=== PATIENT | male | born 1945 | race Caucasian/White ===

== ENCOUNTER 2017-04-17 04:50 | Observation (INO) | payer MEDICARE, OTHER ==
[2017-04-17] MEDS ORDERED: Sodium Chloride 0.9% 1000 ML 1,000 ML IV STA ×2 (05:05→05:20)
[2017-04-17] MEDS ORDERED: ROCEPHIN 1 Gm-D5w 50 ml Bag** 1 G/50 ML IVPB IV STA (05:08)
[2017-04-17] MEDS ORDERED: TYLENOL 325 MG PO ONE (05:09)
[2017-04-17] MEDS ORDERED: Zofran 4 MG/2 ML VIAL IV ONE (05:15)
--- NOTE | 2017-04-17 05:15 | ERPHSYRPT ---
- History of Present Illness Time Seen by Provider: 04/17/17 05:02 Source: patient Exam Limitations: no limitations Patient Subjective Stated Complaint: pt co left shoulder ,and arm pain co neck pain -he is shivering and coughing co urinary frequency -coughted and vomitied in parking lot of er -co weaknes and aching at bedtime Triage Nursing Assessment: pt is awake and alert and able to answer questions - moaning with each resp Physician History: FOR THE PAST 2 DAYS PT HAS HAD LEFT SHOULDER AND ARM PAIN; THIS AM PT FEELS ACHY AND GENERALLY WEAK WITH INCREASED URINARY FREQUENCY, CHILLS, COUGH AND VOMITING X1. Allergies/Adverse Reactions: codeine Allergy (Verified 04/17/17 05:13) Penicillins Allergy (Verified 04/17/17 05:13) Home Medications: Clopidogrel Bisulfate 75 mg [PLAVIX 75 MG Tablet] 1 tab PO DAILY 04/17/17 [History] Hx Tetanus, Diphtheria Vaccination/Date Given: No Hx Influenza Vaccination/Date Given: No Hx Pneumococcal Vaccination/Date Given: No - Review of Systems Constitutional: Chills, Weakness (GENERALIZED) Respiratory: Cough Abdominal/Gastrointestinal: Vomiting Genitourinary Symptoms: Frequency Musculoskeletal: Myalgias, Other (LEFT SHOULDER/ARM PAIN) All Other Systems: Reviewed and Negative - Social History Smoking Status: Former smoker Exposure to second hand smoke: Yes Patient Lives Alone: No - Nursing Vital Signs Nursing Vital Signs: Initial Vital Signs Temperature 101.1 F Temperature Source Oral Pulse Rate 90 Respiratory Rate 23 Blood Pressure [] 178/95 Pain Intensity 3 - Physical Exam General Appearance: alert Eye Exam: PERRL/EOMI Ears, Nose, Throat Exam: dry mucous membranes, pharyngeal erythema Neck Exam: normal inspection Respiratory Exam: wheezing (MILD WHEEZING OVER POSTERIOR BASES) Cardiovascular Exam: normal heart sounds Gastrointestinal/Abdomen Exam: soft, normal bowel sounds Back Exam: normal range of motion Extremity Exam: normal inspection, No pedal edema Neurologic Exam: alert, cooperative Skin Exam: warm, dry SpO2 Interpretation: normal SpO2: 94 Oxygen Delivery: Room Air - Course Nursing assessment & vital signs reviewed: Yes EKG Interpreted by Me: RATE (96), Sinus Rhythm, NORMAL AXIS, NORMAL INTERVALS - Radiology Exams Chest X-ray Interpretation: Interpreted by me (RLL INFILTRATE) Ordered Tests: Active Orders 24 hr Category Date Time Status Binding Machine Operator STAT Care 04/17/17 05:14 Active EKG-ER Only STAT Care 04/17/17 05:05 Active IV Insertion STAT Care 04/17/17 05:05 Active Pulse Oximetry (ED) STAT Care 04/17/17 05:05 Active CHEST 1 VIEW (PORTABLE) Stat Exams 04/17/17 05:06 Taken AMYLASE Stat Lab 04/17/17 05:10 Completed BLOOD CULTURE Stat Lab 04/17/17 05:00 Received CBC W DIFF Stat Lab 04/17/17 05:10 Completed CMP Stat Lab 04/17/17 05:10 Completed CULTURE, THROAT Stat Lab 04/17/17 05:10 Received CULTURE,URINE Stat Lab 04/17/17 05:36 Ordered LIPASE Stat Lab 04/17/17 05:10 Completed Lactic Acid Urgent Lab 04/17/17 05:05 Completed MAGNESIUM Stat Lab 04/17/17 05:10 Completed [place] Screen Stat Lab 04/17/17 05:10 Completed PROTIME WITH INR Stat Lab 04/17/17 05:10 Completed PTT Stat Lab 04/17/17 05:10 Completed STREP SCREEN-BETA A Stat Lab 04/17/17 05:10 Completed Sputum Culture [CULTURE,SPUTUM] Stat Lab 04/17/17 06:01 Ordered TROPONIN Q3H Lab 04/17/17 05:10 Completed TROPONIN Q3H Lab 04/17/17 08:15 Ordered TROPONIN Q3H Lab 04/17/17 11:15 Ordered TROPONIN Q3H Lab 04/17/17 14:15 Ordered TROPONIN Q3H Lab 04/17/17 17:15 Ordered UA W/RFX UR CULTURE Stat Lab 04/17/17 05:06 Ordered Respiratory Nebulizer STAT RT 04/17/17 06:02 Completed Transfer Order Routine Transfer 04/17/17 06:17 Ordered Medication Summary Generic Name Dose Route Start Last Admin Trade Name Freq PRN Reason Stop Dose Admin Azithromycin / Sodium Chloride 250 mls @ 125 mls/hr 04/17/17 05:56 IV 04/17/17 07:55 STAT ONE Magnesium Sulfate/Dextrose 100 mls @ 200 mls/hr 04/17/17 06:06 04/17/17 06:21 Magnesium 1 Gm / 100 Ml D5w IV 04/17/17 06:35 200 mls/hr STAT ONE Administration Discontinued Medications Generic Name Dose Route Start Last Admin Trade Name Freq PRN Reason Stop Dose Admin Acetaminophen 650 mg 06/25/17 05:09 04/17/17 05:24 Tylenol 325 Mg PO 04/17/17 05:10 650 mg STAT ONE Administration Acetaminophen Confirm 04/17/17 05:21 Tylenol 325 Mg Administered 04/17/17 05:22 Dose 650 mg .ROUTE .STK-MED ONE Ceftriaxone Sodium/Dextrose 1 g in 50 mls @ 100 mls/hr 04/17/17 05:08 05:25 Rocephin 1 Gm-D5w 50 Ml Bag IV 04/17/17 05:37 100 mls/hr STAT STA Administration Sodium Chloride 1,000 mls @ 999 mls/hr 04/17/17 05:05 04/17/17 05:24 Sodium Chloride 0.9% 1000 Ml IV 04/17/17 06:05 999 mls/hr .Q1H1M STA Administration Sodium Chloride Confirm 04/17/17 05:16 Sodium Chloride 0.9% 1000 Ml Administered 04/17/17 05:17 Dose 1,000 mls @ ud .ROUTE .STK-MED ONE Ceftriaxone Sodium/Dextrose Confirm 04/17/17 05:16 Rocephin 1 Gm-D5w 50 Ml Bag Administered 04/17/17 05:17 Dose 1 g in 50 mls @ ud IV .STK-MED ONE Sodium Chloride 1,000 mls @ 999 mls/hr 04/17/17 05:20 04/17/17 06:15 Sodium Chloride 0.9% 1000 Ml IV 04/17/17 06:20 999 mls/hr .Q1H1M STA Administration Sodium Chloride Confirm 04/17/17 06:02 Sodium Chloride 0.9% 1000 Ml Administered 04/17/17 06:03 Dose 1,000 mls @ ud .ROUTE .STK-MED ONE Magnesium Sulfate/Dextrose Confirm 04/17/17 06:15 Magnesium 1 Gm / 100 Ml D5w Administered 04/17/17 06:16 Dose 100 mls @ ud IV .STK-MED ONE Ketorolac Tromethamine 30 mg 04/17/17 05:18 04/17/17 05:28 Toradol 30 Mg Injection IV 04/17/17 05:19 30 mg STAT ONE Administration Ketorolac Tromethamine Confirm 04/17/17 05:27 Toradol 30 Mg Injection Administered 04/17/17 05:28 Dose 30 mg .ROUTE .STK-MED ONE Levalbuterol HCl 1.25 mg 04/17/17 05:51 04/17/17 06:01 Xopenex 1.25 Mg/0.5 Ml Ud Nebule IH 04/17/17 05:52 1.25 mg STAT ONE Administration Levalbuterol HCl Confirm 04/17/17 05:57 Xopenex 1.25 Mg/0.5 Ml Ud Nebule Administered 04/17/17 05:58 Dose 1.25 mg IH .STK-MED ONE Ondansetron HCl 4 mg 04/17/17 05:15 04/17/17 05:25 Zofran 4 Mg/2 Ml Vial IV 04/17/17 05:16 4 mg STAT ONE Administration Ondansetron HCl Confirm 04/17/17 05:16 Zofran 4 Mg/2 Ml Vial Administered 04/17/17 05:17 Dose 4 mg .ROUTE .STK-MED ONE Sodium Chloride Confirm 04/17/17 05:57 Sodium Chloride 3 Ml Ud Nebules Administered 04/17/17 05:58 Dose 3 ml IH .STK-MED ONE Lab/Rad Data: Laboratory Result Diagrams 04/17/17 05:10 04/17/17 05:10 Laboratory Results 04/17/17 04/17/17 04/17/17 Range/Units 05:10 05:10 05:10 WBC (4.0-10.5) K/mm3 RBC (4.1-5.6) M/mm3 Hgb (12.5-18.0) gm/dl Hct (42-50) % MCV (78-100) fl MCH (26-32) pg MCHC (32-36) g/dl RDW (11.5-14.0) % Plt Count (150-450) K/mm3 MPV (6-9.5) fl Gran % (36.0-66.0) % Lymphocytes % (24.0-44.0) % Monocytes % (0.0-12.0) % Eosinophils % (0.00-5.0) % Basophils % (0.0-0.4) % Basophils # (0-0.4) INR (0.8-3.0) APTT (24.1-36.1) SECONDS Sodium (136-145) mEq/L Potassium (3.5-5.1) mEq/L Chloride (98-107) mEq/L Carbon Dioxide (21-32) mEq/L Anion Gap (5-15) MEQ/L BUN (9-20) mg/dL Creatinine (0.55-1.30) mg/dl Estimated GFR ML/MIN Glucose (70-110) MG/DL Lactic Acid (0.4-2.0) Calcium (8.5-10.1) mg/dL Magnesium (1.8-2.4) mg/dL Total Bilirubin (0.2-1.0) mg/dL AST (15-37) U/L ALT (12-78) U/L Alkaline Phosphatase (46-116) U/L Troponin I < 0.017 (0.000-0.056) ng/ml Serum Total Protein (6.4-8.2) gm/dL Albumin (3.4-5.0) g/dL Amylase (25-115) U/L Lipase (73-393) U/L Monoscreen NEGATIVE (Negative) Streptococcus Screen NEGATIVE (Negative) 04/17/17 04/17/17 04/17/17 Range/Units 05:10 05:10 05:10 WBC 12.7 H (4.0-10.5) K/mm3 RBC 4.60 (4.1-5.6) M/mm3 Hgb 14.6 (12.5-18.0) gm/dl Hct 43.9 (42-50) % MCV 95.4 (78-100) fl MCH 31.7 (26-32) pg MCHC 33.3 (32-36) g/dl RDW 16.2 H (11.5-14.0) % Plt Count 138 L (150-450) K/mm3 MPV 12.0 H (6-9.5) fl Gran % 83.8 H (36.0-66.0) % Lymphocytes % 9.8 L (24.0-44.0) % Monocytes % 5.7 (0.0-12.0) % Eosinophils % 0.5 (0.00-5.0) % Basophils % 0.2 (0.0-0.4) % Basophils # 0.03 (0-0.4) INR 1.01 (0.8-3.0) APTT 30.9 (24.1-36.1) SECONDS Sodium 142 (136-145) mEq/L Potassium 4.0 (3.5-5.1) mEq/L Chloride 106 (98-107) mEq/L Carbon Dioxide 25.8 (21-32) mEq/L Anion Gap 14.4 (5-15) MEQ/L BUN 18 (9-20) mg/dL Creatinine 1.32 H (0.55-1.30) mg/dl Estimated GFR 57 ML/MIN Glucose 171 H (70-110) MG/DL Lactic Acid (0.4-2.0) Calcium 8.9 (8.5-10.1) mg/dL Magnesium 1.4 L (1.8-2.4) mg/dL Total Bilirubin 0.50 (0.2-1.0) mg/dL AST 19 (15-37) U/L ALT 17 (12-78) U/L Alkaline Phosphatase 80 (46-116) U/L Troponin I (0.000-0.056) ng/ml Serum Total Protein 7.6 (6.4-8.2) gm/dL Albumin 3.8 (3.4-5.0) g/dL Amylase 55 (25-115) U/L Lipase 110 (73-393) U/L Monoscreen (Negative) Streptococcus Screen (Negative) 04/17/17 Range/Units 05:05 WBC (4.0-10.5) K/mm3 RBC (4.1-5.6) M/mm3 Hgb (12.5-18.0) gm/dl Hct (42-50) % MCV (78-100) fl MCH (26-32) pg MCHC (32-36) g/dl RDW (11.5-14.0) % Plt Count (150-450) K/mm3 MPV (6-9.5) fl Gran % (36.0-66.0) % Lymphocytes % (24.0-44.0) % Monocytes % (0.0-12.0) % Eosinophils % (0.00-5.0) % Basophils % (0.0-0.4) % Basophils # (0-0.4) INR (0.8-3.0) APTT (24.1-36.1) SECONDS Sodium (136-145) mEq/L Potassium (3.5-5.1) mEq/L Chloride (98-107) mEq/L Carbon Dioxide (21-32) mEq/L Anion Gap (5-15) MEQ/L BUN (9-20) mg/dL Creatinine (0.55-1.30) mg/dl Estimated GFR ML/MIN Glucose (70-110) MG/DL Lactic Acid 1.9 (0.4-2.0) Calcium (8.5-10.1) mg/dL Magnesium (1.8-2.4) mg/dL Total Bilirubin (0.2-1.0) mg/dL AST (15-37) U/L ALT (12-78) U/L Alkaline Phosphatase (46-116) U/L Troponin I (0.000-0.056) ng/ml Serum Total Protein (6.4-8.2) gm/dL Albumin (3.4-5.0) g/dL Amylase (25-115) U/L Lipase (73-393) U/L Monoscreen (Negative) Streptococcus Screen (Negative) - Progress Discussed with DrChetan: Maximilian Morrison (OBS - [id number]) - Departure Time of Disposition: 06:29 Departure Disposition: Observation Clinical Impression: PNEUMONIA, ARTHRITIS, COPD Condition: Stable Critical Care Time: No Referrals: MICHELLE SCHAFFER [NON-STAFF PHY W/O PRIVILEGES] -
[2017-04-17] MEDS ORDERED: Zofran 4 MG/2 ML VIAL ONE (05:16)
[2017-04-17] MEDS ORDERED: Sodium Chloride 0.9% 1000 ML 1,000 ML ONE ×2 (05:16→06:02)
[2017-04-17] MEDS ORDERED: ROCEPHIN 1 Gm-D5w 50 ml Bag** 1 G/50 ML IVPB IV ONE (05:16)
[2017-04-17] MEDS ORDERED: TORAdol 30 mg Injection IV ONE (05:18)
[2017-04-17] MEDS ORDERED: TYLENOL 325 MG ONE (05:21)
[2017-04-17 05:25] LABS: BASOPHIL % 0.2 % (0.0-0.4); Eosinophil % 0.5 % (0.00-5.0); Granulocytes % 83.8 % (36.0-66.0); Lymphocytes % 9.8 % (24.0-44.0); Mean Cell Volume 95.4 fl (78-100); Mean Corpuscular Hemoglobin 31.7 pg (26-32); Monocytes % 5.7 % (0.0-12.0); Platelet Count 138 K/mm3 (150-450); Red Cell Distribution Width 16.2 % (11.5-14.0); White Blood Count 12.7 K/mm3 (4.0-10.5)
[2017-04-17] MEDS ORDERED: TORAdol 30 mg Injection ONE (05:27)
[2017-04-17 05:38] LABS: INR 1.01 (0.8-3.0); PROTIME 11.4 SECONDS (8.83-12.87)
[2017-04-17 05:41] LABS: PTT 30.9 SECONDS (24.1-36.1)
[2017-04-17 05:46] LABS: ALBUMIN 3.8 g/dL (3.4-5.0); ANION GAP 14.4 MEQ/L (5-15); BILIRUBIN,TOTAL 0.5 mg/dL (0.2-1.0); Carbon Dioxide 25.8 mEq/L (21-32); MAGNESIUM 1.4 mg/dL (1.8-2.4); Total Protein 7.6 gm/dL (6.4-8.2)
[2017-04-17] MEDS ORDERED: Xopenex 1.25 MG/0.5 ML UD NEBULE IH ONE ×2 (05:51→05:57)
[2017-04-17] MEDS ORDERED: ZITHROMAX IV 500 MG*** 0 MG in Sodium Chloride 0.9% 250 ML 250 ML IV ONE (05:56)
[2017-04-17] MEDS ORDERED: Sodium Chloride 3 ML UD NEBULES IH ONE (05:57)
[2017-04-17] MEDS ORDERED: Magnesium 1 Gm / 100 Ml D5W*** 100 ML IV ONE ×2 (06:06→06:15)
[2017-04-17] MEDS ORDERED: Zithromax 500 MG/ 250 ML NaCl Premix 500 MG/250 ML IVPB IV SCH (07:30)
[2017-04-17] MEDS ORDERED: Phenergan 25 MG INJ IV PRN (07:35)
[2017-04-17] MEDS ORDERED: PROVENTIL 2.5 MG/3 ML NEB IH PRN (07:35)
--- NOTE | 2017-04-17 07:44 | XRAY ---
Indication: Left arm pain. Emesis. Comparison: February 09, 2011. Portable chest again demonstrates right mid to lower lung infiltrate versus atelectasis, left base fibrosis/scarring, and left lung calcified pleural plaquing. Heart is not enlarged. Bony thorax intact.
[2017-04-17 08:12] LABS: ADD URINE CULTURE? NO (NO); Bilirubin NEGATIVE (NEGATIVE); Blood NEGATIVE Ery/ul (0-5); COMPLETE URINE MICROSCOPIC? NO; Collection Type CLEAN CATCH; Glucose NEGATIVE (NEGATIVE); Leukocyte Esterase NEGATIVE (NEGATIVE)
[2017-04-17] MEDS: PATIENT OWN MEDICATION IH SCH (08:15)
[2017-04-17] MEDS ORDERED: Zithromax 500 MG/ 250 ML NaCl Premix 500 MG/250 ML IVPB IV ONE (08:17)
[2017-04-17] MEDS: Sodium Chloride 0.9% 1000 ML 1,000 ML IV SCH ×2 (08:22→19:50)
[2017-04-17] MEDS ORDERED: NON-FORMULARY ITEM (Dexlansoprazole [Dexilant] 60 MG) PO SCH (10:00)
[2017-04-17] MEDS ORDERED: [UNRECOGNIZED DRUG - OTHER] SQ SCH (10:00)
[2017-04-17] MEDS ORDERED: COMBIVENT RESPIMAT COMMON CANISTER IH SCH (10:00)
[2017-04-17] MEDS: DUONEB 0.5-3 MG/3 ml Neb IH SCH ×5 (10:28→23:02)
[2017-04-17] MEDS: MAG-OX 400 PO SCH ×2 (11:00→22:55)
[2017-04-17] MEDS: FOLATE 1 MG PO SCH (11:00)
[2017-04-17] MEDS: Protonix 40MG Tablet PO SCH (11:00)
[2017-04-17] MEDS: PLAVIX 75 MG Tablet PO SCH (11:00)
[2017-04-17] MEDS: TYLENOL 325 MG PO PRN (11:04)
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
[2017-04-17] MEDS: NORCO 5/325 MG PO PRN ×2 (13:00→18:54)
[2017-04-17] MEDS: Zestril 5 MG PO SCH (19:51)
[2017-04-17] MEDS ORDERED: NON-FORMULARY ITEM (Simvastatin 40 Mg [Zocor 40 Mg] 40 MG) PO SCH (22:00)
[2017-04-17] MEDS: Singulair 10 MG PO SCH (22:54)
[2017-04-17] MEDS: ZOCOR 20MG PO SCH (22:55)
[2017-04-17] MEDS: Flomax 0.4 MG PO SCH (22:55)
[2017-04-18] MEDS: NORCO 5/325 MG PO PRN ×2 (01:48→08:15)
[2017-04-18] MEDS: TYLENOL 325 MG PO PRN ×2 (03:28→09:16)
[2017-04-18] MEDS: DUONEB 0.5-3 MG/3 ml Neb IH SCH ×6 (03:38→23:06)
[2017-04-18 05:51] LABS: Mean Cell Volume 98.9 fl (78-100); Mean Corpuscular Hemoglobin 31.8 pg (26-32); Mean Platelet Volume 11.1 fl (6-9.5); Platelet Count 107 K/mm3 (150-450); Red Blood Count 3.55 M/mm3 (4.1-5.6); Red Cell Distribution Width 16.4 % (11.5-14.0); White Blood Count 8.4 K/mm3 (4.0-10.5)
[2017-04-18 06:06] LABS: ALBUMIN 2.8 g/dL (3.4-5.0); ALKALINE PHOSPHATASE 59 U/L (46-116); ANION GAP 12.1 MEQ/L (5-15); CHLORIDE 110 mEq/L (98-107); Carbon Dioxide 24.9 mEq/L (21-32); Glucose 135 MG/DL (70-110); MAGNESIUM 1.7 mg/dL (1.8-2.4); Potassium 3.9 mEq/L (3.5-5.1); SGOT/AST 17 U/L (15-37); SGPT/ALT 13 U/L (12-78); SODIUM 143 mEq/L (136-145)
[2017-04-18] MEDS: Sodium Chloride 0.9% 1000 ML 1,000 ML IV SCH ×2 (06:08→19:45)
[2017-04-18 06:21] LABS: BLOOD UREA NITROGEN 13 mg/dL (9-20)
[2017-04-18 07:33] LABS: BAND 1 % (0.0-2.0); Total Cells Counted 100
[2017-04-18 07:34] LABS: Platelet Estimate NORMAL (NORMAL)
[2017-04-18] MEDS: Protonix 40MG Tablet PO SCH (08:15)
[2017-04-18] MEDS: MAG-OX 400 PO SCH ×2 (08:15→21:19)
[2017-04-18] MEDS: FOLATE 1 MG PO SCH (08:15)
[2017-04-18] MEDS: PLAVIX 75 MG Tablet PO SCH (08:15)
[2017-04-18] MEDS: PATIENT OWN MEDICATION IH SCH (08:19)
[2017-04-18] MEDS: Zestril 5 MG PO SCH ×2 (09:14→09:19)
[2017-04-18] MEDS: ROCEPHIN 1 Gm-D5w 50 ml Bag** 1 G/50 ML IVPB IV SCH (09:14)
[2017-04-18] MEDS: Zithromax 500 MG/ 250 ML NaCl Premix 500 MG/250 ML IVPB IV SCH (09:19)
[2017-04-18] MEDS ORDERED: PREVNAR 13 SYRINGE IM ONE (10:00)
--- NOTE | 2017-04-18 12:55 | PCM.NOTE ---
Date and Time: 04/18/17 1252 Subjective Assessment: c/o pain in left shoulder, left side of neck., fever - Review of Systems Constitutional: No Fever, No Chills Eyes: No Symptoms Ears, Nose, & Throat: No Symptoms Respiratory: No Cough, No Short Of Breath Cardiac: No Chest Pain, No Edema, No Syncope Abdominal/Gastrointestinal: No Abdominal Pain, No Nausea, No Vomiting, No Diarrhea Genitourinary Symptoms: No Dysuria Musculoskeletal: Arthralgias (left shoulder and neck area), No Back Pain, No Neck Pain Skin: No Rash Neurological: No Dizziness, No Focal Weakness, No Sensory Changes Psychological: No Symptoms Endocrine: No Symptoms Hematologic/Lymphatic: No Symptoms Immunological/Allergic: No Symptoms Objective Exam General Appearance: no apparent distress, alert Neurologic Exam: alert, oriented x 3, cooperative, normal mood/affect, nml cerebellar function, sensation nml, No motor deficits Skin Exam: normal color, warm, dry Eye Exam: PERRL, EOMI, eyes nml inspection Ears, Nose, Throat Exam: normal ENT inspection, pharynx normal, moist mucous membranes Neck Exam: normal inspection, non-tender, supple, full range of motion Respiratory Exam: diminished breath sounds, crackles/rales, rhonchi, No respiratory distress Cardiovascular Exam: regular rate/rhythm, normal heart sounds Gastrointestinal/Abdomen Exam: soft, No tenderness, No mass Extremity Exam: normal inspection, normal range of motion Back Exam: normal inspection, normal range of motion, No CVA tenderness, No vertebral tenderness Male Genitalia Exam: deferred Rectal Exam: deferred OBJECTIVE DATA Vital Signs: Vital Signs - 24 hr Temp Pulse Resp BP Pulse Ox 04/18/17 12:00 18 04/18/17 10:37 72 18 97 04/18/17 08:00 22 04/18/17 07:09 98 F 66 22 139/65 95 04/18/17 07:00 68 20 04/18/17 04:00 97.5 F 67 21 118/85 96 04/18/17 03:00 66 20 95 04/17/17 23:52 97.7 F 60 18 149/70 95 04/17/17 23:00 91 H 18 95 04/17/17 20:00 98.4 F 73 22 176/82 89 L 04/17/17 19:21 85 18 92 L 04/17/17 16:00 20 06/25/17 14:56 98.1 F 04/17/17 14:53 64 20 93 L Oxygen-Last 24 hours O2 Percentage 2 Liters = 28% O2 Percentage 2 Liters = 28% O2 Percentage 2 Liters = 28% Pain Assessment - Last Documented Pain Intensity 3 Pain Scale Used 0-10 Pain Scale Intake and Output: Intake & Output 04/16/17 04/17/17 04/18/17 04/19/17 11:59 11:59 11:59 11:59 Intake Total 240 2041 Output Total 400 300 Balance -160 1741 Weight 94.801 kg 95.254 kg Lab Results: Accuchecks Date 04/18/17 Date 04/18/17 Date 04/17/17 Time 11:35 Time 07:30 Time 16:30 Accucheck Value: 145 Accucheck Value: 129 Accucheck Value: 131 Accucheck Value: 122 Lab Results-Last 24 Hours 04/17/17 04/17/17 04/18/17 Range/Units 14:30 17:20 05:25 WBC 8.4 (4.0-10.5) K/mm3 RBC 3.55 L (4.1-5.6) M/mm3 Hgb 11.3 L (12.5-18.0) gm/dl Hct 35.1 L (42-50) % MCV 98.9 (78-100) fl MCH 31.8 (26-32) pg MCHC 32.2 (32-36) g/dl RDW 16.4 H (11.5-14.0) % Plt Count 107 L (150-450) K/mm3 MPV 11.1 H (6-9.5) fl Segmented Neutrophils 78 H (36.-66.) % Band Neutrophils 1 (0.0-2.0) % Lymphocytes (Manual) 18 L (24-44) % Monocytes (Manual) 3 (0.0-12.0) % Differential Comment NORMAL Platelet Estimate NORMAL (NORMAL) Sodium (136-145) mEq/L Potassium (3.5-5.1) mEq/L Chloride (98-107) mEq/L Carbon Dioxide (21-32) mEq/L Anion Gap (5-15) MEQ/L BUN (9-20) mg/dL Creatinine (0.55-1.30) mg/dl Estimated GFR ML/MIN Glucose (70-110) MG/DL Calcium (8.5-10.1) mg/dL Magnesium (1.8-2.4) mg/dL Total Bilirubin (0.2-1.0) mg/dL AST (15-37) U/L ALT (12-78) U/L Alkaline Phosphatase (46-116) U/L Troponin I 0.035 0.037 (0.000-0.056) ng/ml Serum Total Protein (6.4-8.2) gm/dL Albumin (3.4-5.0) g/dL 04/18/17 Range/Units 05:25 WBC (4.0-10.5) K/mm3 RBC (4.1-5.6) M/mm3 Hgb (12.5-18.0) gm/dl Hct (42-50) % MCV (78-100) fl MCH (26-32) pg MCHC (32-36) g/dl RDW (11.5-14.0) % Plt Count (150-450) K/mm3 MPV (6-9.5) fl Segmented Neutrophils (36.-66.) % Band Neutrophils (0.0-2.0) % Lymphocytes (Manual) (24-44) % Monocytes (Manual) (0.0-12.0) % Differential Comment Platelet Estimate (NORMAL) Sodium 143 (136-145) mEq/L Potassium 3.9 (3.5-5.1) mEq/L Chloride 110 H (98-107) mEq/L Carbon Dioxide 24.9 (21-32) mEq/L Anion Gap 12.1 (5-15) MEQ/L BUN 13 (9-20) mg/dL Creatinine 1.15 (0.55-1.30) mg/dl Estimated GFR > 60 ML/MIN Glucose 135 H (70-110) MG/DL Calcium 7.9 L (8.5-10.1) mg/dL Magnesium 1.7 L (1.8-2.4) mg/dL Total Bilirubin 0.60 (0.2-1.0) mg/dL AST 17 (15-37) U/L ALT 13 (12-78) U/L Alkaline Phosphatase 59 (46-116) U/L Troponin I (0.000-0.056) ng/ml Serum Total Protein 6.0 L (6.4-8.2) gm/dL Albumin 2.8 L (3.4-5.0) g/dL Assessment/Plan (1) Pneumonia involving right lung Current Visit: Yes Status: Acute Qualifiers: Pneumonia type: due to unspecified organism Lung location: lower lobe of lung Qualified Code(s): J18.1 - Lobar pneumonia, unspecified organism Assessment & Plan: Last Vital Signs Temp 98 F 04/18/17 07:09 Pulse 72 04/18/17 10:37 Resp 18 04/18/17 12:00 BP 139/65 04/18/17 07:09 Pulse Ox 97 04/18/17 10:37 Allergies codeine Allergy (Verified 04/17/17 05:13) Penicillins Allergy (Verified 04/17/17 05:13) Active Medications Acetaminophen (Tylenol 325 Mg) 650 mg PO Q4H PRN PRN PRN Reason: PAIN AND/OR FEVER Stop: 05/17/17 07:34 Last Admin: 04/18/17 09:16 Dose: 650 mg Hydrocodone Bitart/Acetaminophen ([place] 7.5/325 Mg Tab) 1 tab PO Q4H PRN PRN PRN Reason: PAIN Stop: 04/23/17 12:52 Albuterol Sulfate (Proventil 2.5 Mg/3 Ml Neb) 2.5 mg IH Q2H PRN PRN PRN Reason: SHORTNESS OF BREATH/WHEEZING Stop: 05/17/17 07:34 Albuterol/Ipratropium (Duoneb 0.5-3 Mg/3 Ml Neb) 3 ml IH Q4HRT RODGER Stop: 05/17/17 07:34 Last Admin: 04/18/17 10:37 Dose: 3 ml Clopidogrel Bisulfate (Plavix 75 Mg Tablet) 75 mg PO DAILY [facility] Stop: 05/17/17 09:59 Last Admin: 04/18/17 08:15 Dose: 75 mg Folic Acid (Folate 1 Mg) 1 mg PO DAILY [facility] Stop: 05/17/17 09:59 Last Admin: 04/18/17 08:15 Dose: 1 mg Guaifenesin/Dextromethorphan (Robitussin-Dm Syrup) 10 ml PO Q4H PRN PRN PRN Reason: COUGH Stop: 05/17/17 07:34 Azithromycin (Zithromax 500 Mg/ 250 Ml Nacl Premix) 500 mg in 250 mls @ 250 mls /hr IV Q24H10 RODGER Stop: 05/18/17 09:59 Last Admin: 04/18/17 09:19 Dose: 250 mls/hr Ceftriaxone Sodium/Dextrose (Rocephin 1 Gm-D5w 50 Ml Bag) 1 g in 50 mls @ 100 mls/hr IV Q24H10 RODGER Stop: 05/18/17 09:59 Last Admin: 04/18/17 09:14 Dose: 100 mls/hr Sodium Chloride (Sodium Chloride 0.9% 1000 Ml) 1,000 mls @ 100 mls/hr IV .Q10H RODGER Stop: 05/17/17 07:34 Last Admin: 04/18/17 06:08 Dose: 100 mls/hr Lisinopril (Zestril 5 Mg) 5 mg PO 2000 [facility] Stop: 05/17/17 19:59 Last Admin: 04/18/17 09:14 Dose: 5 mg Lisinopril (Zestril 5 Mg) 5 mg PO DAILY RODGER Stop: 05/18/17 09:59 Last Admin: 04/18/17 09:19 Dose: 5 mg Magnesium Oxide (Mag-Ox 400) 400 mg PO BID RODGER Stop: 05/17/17 09:59 Last Admin: 04/18/17 08:15 Dose: 400 mg Montelukast Sodium (Singulair 10 Mg) 10 mg PO HS RODGER Stop: 05/17/17 21:59 Last Admin: 04/17/17 22:54 Dose: 10 mg Pantoprazole Sodium (Protonix 40mg Tablet) 40 mg PO DAILY RODGER Stop: 05/17/17 09:59 Last Admin: 04/18/17 08:15 Dose: 40 mg Anoro Ellipta (Inhaler) 1 each IH DAILY RODGER Stop: 05/17/17 09:59 Last Admin: 04/18/17 08:19 Dose: 1 each Patient Own Med ( (Humira)) 0 each SQ Q14D RODGER Stop: 05/24/17 09:59 Promethazine HCl (Phenergan 25 Mg Inj) 12.5 mg IV Q2H PRN PRN PRN Reason: NAUSEA/VOMITING Stop: 05/17/17 07:34 Simvastatin (Zocor 20mg) 40 mg PO HS RODGER Stop: 05/17/17 21:59 Last Admin: 04/17/17 22:55 Dose: 40 mg Tamsulosin HCl (Flomax 0.4 Mg) 0.4 mg PO HS RODGER Stop: 05/17/17 21:59 Last Admin: 04/17/17 22:55 Dose: 0.4 mg Intake & Output 04/18/17 04/19/17 11:59 11:59 Intake Total 2041 Output Total 300 Balance 1741 Weight 95.254 kg Orders 04/17/17 17:59 ACCUCHECK [Accucheck] ACHS 04/17/17 20:00 Lisinopril 5 mg [Zestril 5 MG] 5 mg PO 2000 04/17/17 22:00 Montelukast Sodium 10 mg [Singulair 10 MG] 10 mg PO HS Simvastatin 20Mg [Zocor 20Mg] 40 mg PO HS Tamsulosin HCl 0.4 mg [Flomax 0.4 MG] 0.4 mg PO HS 04/18/17 10:00 Lisinopril 5 mg [Zestril 5 MG] 5 mg PO DAILY 04/18/17 12:53 Hydrocodone /APAP 7.5/325 mg [[place] 7.5/325 mg Tab] 1 tab PO Q4H PRN PRN 04/24/17 10:00 Patient Own Med [Patient Own Medication] 0 each SQ Q14D Lab Tests 04/17/17 04/17/17 04/17/17 07:00 14:30 17:20 WBC RBC Hgb Hct MCV MCH MCHC RDW Plt Count MPV Segmented Neutrophils Band Neutrophils Lymphocytes (Manual) Monocytes (Manual) Differential Comment Platelet Estimate Sodium Potassium Chloride Carbon Dioxide Anion Gap BUN Creatinine Estimated GFR Glucose Hemoglobin A1c 5.8 Calcium Magnesium Total Bilirubin AST ALT Alkaline Phosphatase Troponin I 0.035 0.037 Serum Total Protein Albumin 04/18/17 04/18/17 05:25 05:25 WBC 8.4 RBC 3.55 L Hgb 11.3 L Hct 35.1 L MCV 98.9 MCH 31.8 MCHC 32.2 RDW 16.4 H Plt Count 107 L MPV 11.1 H Segmented Neutrophils 78 H Band Neutrophils 1 Lymphocytes (Manual) 18 L Monocytes (Manual) 3 Differential Comment NORMAL Platelet Estimate NORMAL Sodium 143 Potassium 3.9 Chloride 110 H Carbon Dioxide 24.9 Anion Gap 12.1 BUN 13 Creatinine 1.15 Estimated GFR > 60 Glucose 135 H Hemoglobin A1c Calcium 7.9 L Magnesium 1.7 L Total Bilirubin 0.60 AST 17 ALT 13 Alkaline Phosphatase 59 Troponin I Serum Total Protein 6.0 L Albumin 2.8 L continue present management Code(s): J18.9 - PNEUMONIA, UNSPECIFIED ORGANISM (2) Neck ache Current Visit: Yes Status: Acute Assessment & Plan: will get CT Cervical spine Code(s): M54.2 - CERVICALGIA (3) Shoulder arthralgia Current Visit: Yes Status: Acute Qualifiers: Laterality: left Qualified Code(s): M25.512 - Pain in left shoulder Code(s): M25.519 - PAIN IN UNSPECIFIED SHOULDER
[2017-04-18] MEDS: NORCO 7.5/325 MG TAB PO PRN ×3 (13:29→21:28)
--- NOTE | 2017-04-18 13:49 | XRAY ---
Indication: Neck pain. Old C2 fracture. No acute injury. Multiple contiguous axial images obtained through the cervical spine. Sagittal and coronal reformatted images obtained. Comparison: May 04, 2011. Stable old C2 vertebral body fracture deformity. There remains mild/moderate multilevel degenerative endplate spurring and bilateral degenerative facet hypertrophy. No acute fracture, suspicious bony lesions, or spinal canal stenosis. Sagittal and coronal reformatted images demonstrates stable normal alignment with multilevel disc space narrowing. No acute compression fracture, subluxation, or jumped facet. Normal-appearing craniocervical junction. Visualized noncontrasted soft tissues again demonstrates moderate carotid calcifications bilaterally. Impression: Stable old C2 fracture, multilevel degenerative changes, and bilateral carotid calcifications. No new/acute findings. CT DI 126.73
--- NOTE | 2017-04-18 13:51 | XRAY ---
Indication: Left shoulder pain. No known injury. Multiple contiguous axial images obtained through the left shoulder. Sagittal and coronal reformatted images obtained. Comparison: None. There is mild acromioclavicular degenerative arthropathy. No acute fracture, dislocation, large effusion, or suspicious bony lesions. Supraspinatus muscle demonstrates mild atrophy. Remaining visualized noncontrasted soft tissues unremarkable. Visualized left lung demonstrates mild centrilobular emphysema and subpleural fibrosis/scarring. Impression: Mild acromioclavicular degenerative arthropathy in a otherwise negative CT left shoulder. Incidental pulmonary emphysema with fibrosis/scarring. CT DI 79.18
[2017-04-18] MEDS: ZOCOR 20MG PO SCH (21:19)
[2017-04-18] MEDS: Flomax 0.4 MG PO SCH (21:19)
[2017-04-18] MEDS: Singulair 10 MG PO SCH (21:19)
[2017-04-18] MEDS: Robitussin-Dm Syrup PO PRN (21:29)
[2017-04-19] MEDS: NORCO 7.5/325 MG TAB PO PRN ×2 (01:34→09:20)
[2017-04-19] MEDS: Robitussin-Dm Syrup PO PRN ×2 (01:34→05:30)
[2017-04-19] MEDS: Sodium Chloride 0.9% 1000 ML 1,000 ML IV SCH ×2 (01:57→05:25)
[2017-04-19] MEDS: DUONEB 0.5-3 MG/3 ml Neb IH SCH ×3 (03:06→10:34)
[2017-04-19] MEDS: PATIENT OWN MEDICATION IH SCH (06:40)
[2017-04-19 08:24] VITALS: O2SAT 92
[2017-04-19] MEDS: ROCEPHIN 1 Gm-D5w 50 ml Bag** 1 G/50 ML IVPB IV SCH (09:10)
[2017-04-19] MEDS: PLAVIX 75 MG Tablet PO SCH (09:12)
[2017-04-19] MEDS: FOLATE 1 MG PO SCH (09:12)
[2017-04-19] MEDS: Protonix 40MG Tablet PO SCH (09:13)
[2017-04-19] MEDS: MAG-OX 400 PO SCH (09:13)
[2017-04-19] MEDS: Zestril 5 MG PO SCH (09:13)
[2017-04-19] MEDS: Zithromax 500 MG/ 250 ML NaCl Premix 500 MG/250 ML IVPB IV SCH (11:03)
[2017-04-19 12:55] VITALS: BP 171/88; PULSE 93
[2017-04-24] MEDS ORDERED: PATIENT OWN MEDICATION SQ SCH (10:00)
== END 2017-04-19 12:35 | disposition home or self-care (01) ==
LOC: ED 04:50 → MED SURG 07:12
PROVIDERS: ADMIT General Practice; ATTEND General Practice
DX: J18.1 Lobar pneumonia, unspecified organism (principal); M54.2 Cervicalgia; M25.512 Pain in left shoulder; J44.9 Chronic obstructive pulmonary disease, unspecified; E11.9 Type 2 diabetes mellitus without complications; F41.9 Anxiety disorder, unspecified; Z85.51 Personal history of malignant neoplasm of bladder; Z79.899 Other long term (current) drug therapy; Z23 Encounter for immunization; M79.602 Pain in left arm
CPT/HCPCS: 36000; 36415; 71010; 72125; 73200; 80053; 81002; 82150; 82962; 83036; 83605; 83690; 83735; 84484; 85025; 85610; 85730; 86308; 87040; 87070; 87077; 87086; 87430; 90670; 93005; 93041; 93268; 94640; 94760; 96360; 96361; 96365; 96374; 96375; 99285; G0009; G0378; J0456; J0696; J1885; J2405; J3475; A9270-GY

== ENCOUNTER 2019-05-22 18:11 | Emergency (ER) | payer MEDICARE, OTHER ==
[2019-05-22 18:41] LABS: BASOPHIL % 0.9 % (0.0-0.4); Basophil (Absolute #) 0.06 (0-0.4); Eosinophil % 4.1 % (0.00-5.0); Eosinophil (Absolute #) 0.27 (0-0.5); Granulocyte Absolute (ANC) 3.43 (1.4-6.9); Granulocytes % 51.8 % (36.0-66.0); Hematocrit 38.9 % (42-50); Hemoglobin 12.8 gm/dl (12.5-18.0); Lymphocyte (Absolute #) 2.29 (1.0-4.6); Lymphocytes % 34.6 % (24.0-44.0); Mean Cell Volume 93.5 fl (78-100); Mean Corpuscular Hemoglobin 30.8 pg (26-32); Mean Corpuscular Hgb Concent. 32.9 g/dl (32-36); Mean Platelet Volume 11.2 fl (6-9.5); Monocyte (Absolute #) 0.57 (0.0-1.3); Monocytes % 8.6 % (0.0-12.0); Platelet Count 170 K/mm3 (150-450); Red Blood Count 4.16 M/mm3 (4.1-5.6); Red Cell Distribution Width 16.9 % (11.5-14.0); White Blood Count 6.6 K/mm3 (4.0-10.5)
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
[2019-05-22 18:58] LABS: ALBUMIN 4.1 g/dL (3.5-5.0); ALKALINE PHOSPHATASE 71 U/L (38-126); ANION GAP 13.7 MEQ/L (5-15); BLOOD UREA NITROGEN 14 mg/dL (9-20); CHLORIDE 105 mmol/L (98-107); Calcium 9.3 mg/dL (8.4-10.2); Carbon Dioxide 25 mmol/L (22-30); Creatinine 1 1.02 mg/dL (0.66-1.25); Glucose 115 mg/dL (74-106); Potassium 3.9 mmol/L (3.5-5.1); SGOT/AST 29 U/L (17-59); SGPT/ALT 18 U/L (0-50); SODIUM 140 mmol/L (137-145); Total Protein 7.8 g/dL (6.3-8.2)
[2019-05-22 20:46] VITALS: BP 156/91; PULSE 68; O2SAT 98
--- NOTE | 2019-05-23 08:37 | XRAY ---
Indication: Headache and neck pain. Multiple contiguous axial images obtained through the head without contrast. Comparison: May 04, 2011. There is age-appropriate global atrophy and mild periventricular degenerative micro-ischemia bilaterally. A few new benign-appearing scattered extra-axial punctate calcifications possible sequela to previous infection/granulomatous or metabolic. No acute intracranial hemorrhage, abnormal extra-axial fluid collection, or mass effect. Fourth ventricle is midline without hydrocephalus. Bony calvarium intact. Visualized paranasal sinuses and mastoid air cells are clear. Impression: Normal aging brain including atrophy and degenerative micro-ischemia. Benign-appearing extra-axial punctate calcifications possibly from previous infection/granulomatous or metabolic. No acute intracranial abnormalities. CT DI 67.22
== END 2019-05-22 20:47 | disposition home or self-care (01) ==
LOC: ED 18:11
DX: R51 Headache (principal); Z98.890 Other specified postprocedural states; I10 Essential (primary) hypertension; J44.9 Chronic obstructive pulmonary disease, unspecified; E11.9 Type 2 diabetes mellitus without complications; Z85.51 Personal history of malignant neoplasm of bladder
CPT/HCPCS: 36000; 36415; 70450; 80053; 85025; 99284

== ENCOUNTER 2024-03-29 09:16 | Emergency (ER) | payer MEDICARE, OTHER ==
[2024-03-29 09:49] VITALS: TEMP 96.9
[2024-03-29] MEDS ORDERED: DUONEB 0.5-3 MG/3 ml Neb IH ONE (09:56)
[2024-03-29] MEDS: DUONEB 0.5-3 MG/3 ml Neb IH ONE (10:00)
[2024-03-29] MEDS ORDERED: Sterile H2O 10 ml IJ ONE (10:02)
[2024-03-29] MEDS ORDERED: solu-MEDROL ONE (10:02)
[2024-03-29] MEDS: solu-MEDROL 125 MG, Sterile H2O 10 ml 2 ML IV ONE (10:04)
[2024-03-29 10:32] LABS: Absolute Neutrophil Ct (ANC) 3.88 x10^3/uL (1.4-6.9); BASOPHIL % 0.7 % (0.2-1.2); Basophil (Absolute #) 0.04 x10^3/uL (0-0.4); Eosinophil % 1.9 % (0.8-7.0); Eosinophil (Absolute #) 0.11 x10^3/uL (0-0.5); Hematocrit 34.9 % (40.1-51.0); Hemoglobin 11.2 g/dL (13.7-175); IMMATURE GRAN # 0.03 x10^3u/L (0.00-0.03); IMMATURE GRAN % 0.5 % (0.001-0.429); Lymphocyte (Absolute #) 1.41 x10^3/uL (1.0-4.6); Lymphocytes % 23.9 % (21.8-53.1); Mean Cell Volume 98.9 fL (79.0-92.2); Mean Corpuscular Hemoglobin 31.7 pg (25.7-32.2); Mean Corpuscular Hgb Concent. 32.1 g/dL (32.3-36.5); Mean Platelet Volume 12.3 fL (9.4-12.4); Monocyte (Absolute #) 0.43 x10^3/uL (0.0-1.3); Monocytes % 7.3 % (5.3-12.2); NUCLEATED RBC # 0.02 x10^3u/L (0.00-0.01); NUCLEATED RBC % 0.3 % (0.00-0.2); Neutrophil % 65.7 % (34.0-67.9); Platelet Count 184 x10^3/uL (163-337); Red Blood Count 3.53 x10^6/uL (4.63-6.08); Red Cell Distribution Width 18.5 % (11.6-14.4); White Blood Count 5.9 x10^3/uL (4.23-9.07)
[2024-03-29 10:38] LABS: Erythrocyte Sedimentation Rate 77 mm/hr (0-15)
[2024-03-29 11:02] LABS: ALBUMIN 4.1 g/dL (3.5-5.0); BILIRUBIN,TOTAL 0.6 mg/dL (0.2-1.3); Calcium 9.7 mg/dL (8.4-10.2); Creatinine 1 0.97 mg/dL (0.66-1.25); EST GLOMERULAR FILTRATION RATE 79.4 ML/MIN; MAGNESIUM 1.7 mg/dL (1.6-2.3); PROCALCITONIN 0.083 ng/mL (0.030-0.080); Potassium 4.4 mmol/L (3.5-5.1); Uric Acid 6.6 mg/dL (3.5-7.2)
--- NOTE | 2024-03-29 11:14 | XRAY ---
CLINICAL HISTORY: sob COMPARISON: 03/17/2023 TECHNIQUE: X-ray Chest frontal projection. FINDINGS: Re-demonstration of hyperinflated bilateral lung brewer with flattening of both dome of the diaphragm and blunting of the costophrenic angles. Re-demonstration of bilateral calcified pleural plaquing. Thin calcified plaquing is also seen in the right hemithorax in the lower zone. Atelectatic bands are seen in the bilateral lower zones. mild interval improvement regarding bilateral lower zonal subsegmental and patchy opacities. Normal heart size. Normal mediastinal contour. Redemonstration of degenerative changes involving the spine IMPRESSION: Redemonstration of hyperinflated bilateral lung brewer with blunting of bilateral costophrenic angles and calcified plaques along with scarring. As compared to previous mild interval improvement regarding bilateral lower zonal subsegmental and patchy opacities. Electronically Signed by: Irma Fonseca MD. (03/29/2024 11:10:41 EDT)
[2024-03-29] MEDS ORDERED: ROCEPHIN 2 GM/100 ML NACL 2 GM/100 ML IVPB IV ONE (12:07)
[2024-03-29] MEDS: ROCEPHIN 2 GM/100 ML NACL 2 GM/100 ML IVPB IV ONE (12:08)
[2024-03-29 12:14] VITALS: O2SAT 94
[2024-03-29] MEDS ORDERED: MORPHINE SULFATE 4 MG INJ ONE (12:32)
[2024-03-29] MEDS ORDERED: Zofran 4 MG/2 ML VIAL ONE (12:32)
[2024-03-29] MEDS: Zofran 4 MG/2 ML VIAL IV ONE (12:33)
[2024-03-29] MEDS: MORPHINE SULFATE 4 MG INJ IV ONE (12:33)
[2024-03-29] MEDS ORDERED: Zithromax 500 MG/ 250 ML NaCl Premix 500 MG/250 ML IVPB IV ONE (12:33)
[2024-03-29] MEDS: Zithromax 500 MG/ 250 ML NaCl Premix 500 MG/250 ML IVPB IV STA (12:43)
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
[2024-03-29 13:39] VITALS: BP 90/55; PULSE 75; RESP 17
== END 2024-03-29 13:56 | disposition home or self-care (01) ==
LOC: ED 09:16
DX: J44.1 Chronic obstructive pulmonary disease with (acute) exacerbation (principal); M25.40 Effusion, unspecified joint; I10 Essential (primary) hypertension; E78.5 Hyperlipidemia, unspecified; E11.9 Type 2 diabetes mellitus without complications; Z79.4 Long term (current) use of insulin; Z79.52 Long term (current) use of systemic steroids; Z79.891 Long term (current) use of opiate analgesic; Z79.899 Other long term (current) drug therapy
CPT/HCPCS: 36415; 71045; 80053; 83605; 83735; 83880; 84145; 84484; 84550; 85025; 85652; 87040; 93005; 93041; 94640; 96365; 96367; 96374; 96375; 99284; J0456; J0696; J2270; J2405; J2919; A9270-GY